=== PATIENT | female | born 1980 | race Hispanic/Latino ===

== ENCOUNTER 2018-11-08 09:38 | Emergency (ER) | payer SELFPAY ==
[2018-11-08] MEDS ORDERED: Ketorolac Tromethamine 30 MG/ML VIAL ONE (10:14)
[2018-11-08] MEDS ORDERED: Dexamethasone 4 mg/ml Vial ONE (10:14)
== END 2018-11-08 10:40 | disposition home or self-care (01) ==
LOC: ERS 09:38
DX: K05.10 Chronic gingivitis, plaque induced (principal)
CPT/HCPCS: 96372; 99282; J1100; J1885